=== PATIENT | female | born 1965 | race Caucasian/White ===

== ENCOUNTER 2021-08-08 11:30 | Emergency (ER) | payer MEDICAID ==
[~2021-08-08] VITALS: Ht 167.6 cm; Wt 52.7 kg
[2021-08-08] MEDS ORDERED: normal saline 1000ml 1,000 ML IV ONE (13:00)
[2021-08-08 13:15] LABS: BASOPHILS # (AUTO) 0.1 X10'3 (0-0.2); BASOPHILS % (AUTO) 0.8 % (0-1); EOSINOPHILS % (AUTO) 0.3 % (0-6); HEMATOCRIT 39.4 % (35.0-45.0); LYMPHOCYTES # (AUTO) 1.6 X10'3 (1.1-4.8); LYMPHOCYTES % (AUTO) 16.2 % (21-51); MEAN CORPUSCULAR VOLUME 93.7 FL (78-98); MEAN PLATELET VOLUME 7.9 FL (7.4-10.4); MONOCYTES # (AUTO) 0.6 X10'3 (0-0.9); MONOCYTES % (AUTO) 6.1 % (2-12); NEUTROPHILS # (AUTO) 7.8 X10'3 (1.8-7.7); NEUTROPHILS % (AUTO) 76.6 % (42-75); PLATELET COUNT 339 X10'3 (140-440); RED BLOOD COUNT 4.21 X10'6 (4.20-5.60); RED CELL DISTRIBUTION WIDTH 17.9 % (11.5-14.5); WHITE BLOOD COUNT 10.2 X10'3 (4.5-11.0)
[2021-08-08 13:23] LABS: ALANINE AMINOTRANSFERASE 18 U/L (12-78); ALBUMIN 3.8 G/DL (3.4-5.0); ALBUMIN/GLOBULIN RATIO 0.7 (1.1-1.5); ALKALINE PHOSPHATASE 125 IU/L (46-116); ANION GAP 20 (8-16); ASPARTATE AMINO TRANSFERASE 29 U/L (10-37); BILIRUBIN,TOTAL 0.9 MG/DL (0.1-1.0); BLOOD UREA NITROGEN 14 MG/DL (7-18); CALCIUM 9.7 MG/DL (8.5-10.1); CHLORIDE 102 MMOL/L (99-107); CREATININE 1.17 MG/DL (0.40-0.90); GLUCOSE 152 MG/DL (70-104); POTASSIUM 4.3 MMOL/L (3.5-5.1); SODIUM 140 MMOL/L (135-145); TOTAL CARBON DIOXIDE 18.2 MMOL/L (24-32); TOTAL PROTEIN 8.9 G/DL (6.4-8.2); eGFR 48 ML/MIN
[2021-08-08 13:27] LABS: D-DIMER 0.23 MG/L FEU (0-0.50)
--- NOTE | 2021-08-08 13:41 | NUR ---
CONTACT NUMBER FOR SISTERNELL,
[2021-08-08] MEDS ORDERED: iohexol 300mg/ml 100ml inj. ONE (14:56)
--- NOTE | 2021-08-08 15:37 | NUR ---
back from ct
[2021-08-08 16:10] LABS: CREATINE KINASE 19 U/L (26-192)
[2021-08-08] MEDS ORDERED: ondansetron/PF 4mg/2ml inj IV ONE (17:20)
[2021-08-08] MEDS ORDERED: ONDA4TAB6 PO (18:25)
[2021-08-08 20:30] VITALS: BP 113/78
== END 2021-08-08 18:57 | disposition home or self-care (01) ==
LOC: ER 11:31
DX: R10.13 Epigastric pain (principal); Z20.822 Contact with and (suspected) exposure to COVID-19; R11.0 Nausea; Z90.49 Acquired absence of other specified parts of digestive tract; Z88.2 Allergy status to sulfonamides; Z88.5 Allergy status to narcotic agent; Z79.899 Other long term (current) drug therapy
CPT/HCPCS: 36415; 71045; 74177; 80053; 82550; 83880; 84484; 85025; 85379; 87635; 93005; 96374; 99285; C9803; J2405; J7030; Q9967

== ENCOUNTER 2021-08-12 13:49 | Day surgery (SDC) | payer MEDICAID ==
[2021-08-12] VITALS (7 sets, daily range): BP systolic 104–148; BP diastolic 69–80
[~2021-08-12] VITALS: Ht 167.6 cm; Wt 52.7 kg
[~2021-08-12 13:49] MED LIST: ONDA4TAB6 PO
[2021-08-12] MEDS ORDERED: LIDOcaine Viscous 15ml cup ONE ×2 (14:17→15:07)
[2021-08-12] MEDS ORDERED: fentaNYL/PF 50MCG/1 ML 2ML syringe ONE (14:17)
[2021-08-12] MEDS ORDERED: MIDAZolam 1 MG/ML 5ML VIAL ONE (14:17)
[2021-08-12] MEDS ORDERED: ONDA4TAB6 PO (14:19)
[2021-08-12] MEDS ORDERED: OMEP-271 PO (14:20)
[2021-08-12] MEDS ORDERED: FAMO20TA8 PO (14:20)
[2021-08-12] MEDS ORDERED: PROG100C11 PO (14:21)
[2021-08-12] MEDS ORDERED: ESTR0.9T2 PO (14:21)
[2021-08-12] MEDS ORDERED: diphenhydrAMINE 50 mg/ml inj ONE (15:41)
== END 2021-08-12 17:30 | disposition home or self-care (01) ==
LOC: GI LAB 13:49
PROVIDERS: ATTEND Internal Medicine Gastroenterology
DX: R13.14 Dysphagia, pharyngoesophageal phase (principal); K22.2 Esophageal obstruction; K20.80 Other esophagitis without bleeding; K29.50 Unspecified chronic gastritis without bleeding; Z87.891 Personal history of nicotine dependence; Z72.89 Other problems related to lifestyle; Z88.2 Allergy status to sulfonamides; Z88.5 Allergy status to narcotic agent; Z79.899 Other long term (current) drug therapy
CPT/HCPCS: 43239; 43248; 99152; C1769; J1200; J2250; J3010; J7040; Z7512; 99153; A4620

== ENCOUNTER 2022-07-23 10:45 | Emergency (ER) | payer MEDICAID ==
[~2022-07-23] VITALS: Ht 165.1 cm; Wt 49.5 kg
[~2022-07-23 10:45] MED LIST changes: +ESTR0.9T2 PO; +FAMO20TA8 PO; +OMEP-271 PO; +PROG100C11 PO
[2022-07-23 10:48] VITALS: BP 134/95
[2022-07-23 12:15] LABS: BASOPHILS # (AUTO) 0.1 X10'3 (0-0.2); BASOPHILS % (AUTO) 0.8 % (0-1); EOSINOPHILS # (AUTO) 0.1 X10'3 (0-0.9); EOSINOPHILS % (AUTO) 0.9 % (0-6); LYMPHOCYTES # (AUTO) 3.2 X10'3 (1.1-4.8); LYMPHOCYTES % (AUTO) 28.6 % (21-51); MEAN CORPUSCULAR HEMOGLOBIN 29.8 PG (27.0-31.0); MEAN CORPUSCULAR HGB CONC 33.4 g/dL (33.0-36.5); MEAN PLATELET VOLUME 7.8 FL (7.4-10.4); MONOCYTES # (AUTO) 0.8 X10'3 (0-0.9); MONOCYTES % (AUTO) 6.7 % (2-12); PLATELET COUNT 471 X10'3 (140-440); RED BLOOD COUNT 3.71 X10'6 (4.20-5.60); WHITE BLOOD COUNT 11.1 X10'3 (4.5-11.0)
[2022-07-23 12:30] LABS: ALANINE AMINOTRANSFERASE 29 U/L (12-78); ALBUMIN 3.5 G/DL (3.4-5.0); ALBUMIN/GLOBULIN RATIO 0.8 (1.1-1.5); ALKALINE PHOSPHATASE 153 IU/L (46-116); ANION GAP 13 (8-16); ASPARTATE AMINO TRANSFERASE 24 U/L (10-37); BILIRUBIN,TOTAL 0.7 MG/DL (0.1-1.0); BLOOD UREA NITROGEN 16 MG/DL (7-18); BUN/CREATININE RATIO 10.8 (6.6-38.0); CALCIUM 9.6 MG/DL (8.5-10.1); CHLORIDE 97 MMOL/L (99-107); CREATININE 1.48 MG/DL (0.40-0.90); GLUCOSE 111 MG/DL (70-104); POTASSIUM 4.2 MMOL/L (3.5-5.1); SODIUM 137 MMOL/L (135-145); TOTAL CARBON DIOXIDE 27.3 MMOL/L (24-32); TOTAL PROTEIN 8.1 G/DL (6.4-8.2); eGFR 36 ML/MIN
[2022-07-23] MEDS ORDERED: iohexol 300mg/ml 100ml inj. ONE (12:38)
[2022-07-23 12:49] LABS: COLOR,URINE YELLOW (Yellow); GLUCOSE, URINE NEGATIVE (Neg); KETONES,URINE TRACE mg/dl (Neg); LEUKOCYTE ESTERASE ,URINE NEGATIVE (Neg); NITRITES, URINE NEGATIVE (Neg); OCCULT BLOOD,URINE NEGATIVE (Neg); PH,URINE 5.5 (4.8-8.0); PROTEIN,URINE TRACE mg/dl (Neg); UROBILINOGEN,URINE 0.2 E.U/dL (0.2-1.0)
[2022-07-23 13:20] LABS: CLARITY,URINE SLIGHTLY CLOUDY (Clear); UA COLLECTION TYPE VOIDED
[2022-07-23 13:23] LABS: SQUAMOUS EPITHELIAL CELL,UR MANY /LPF (FEW)
[2022-07-23 13:25] LABS: BACTERIA,URINE 2+ /HPF (Neg)
[2022-07-23 13:26] LABS: HYALINE CASTS 0-3 /LPF (NEGATIVE); RBC,URINE 0-2 /HPF (0-2)
[2022-07-23] MEDS ORDERED: FOSFOMYCIN TROMETHAMINE 3 GM PACKET PO ONE (15:10)
== END 2022-07-23 15:34 | disposition home or self-care (01) ==
LOC: ER 10:45
DX: N39.0 Urinary tract infection, site not specified (principal); R31.9 Hematuria, unspecified; Z88.2 Allergy status to sulfonamides; Z79.899 Other long term (current) drug therapy; Z88.5 Allergy status to narcotic agent
CPT/HCPCS: 36415; 74177; 80053; 81001; 85025; 87088; 99285; J3490; Q9967

== ENCOUNTER 2023-06-23 10:19 | Emergency (ER) | payer MEDICAID ==
[~2023-06-23] VITALS: Ht 165.1 cm; Wt 60.0 kg
[2023-06-23 13:58] VITALS: TEMP 97.8
[2023-06-23] MEDS ORDERED: ondansetron/PF 4mg/2ml inj IV ONE (14:55)
[2023-06-23] MEDS ORDERED: morphine 4 MG/ML inj SYRINge IV ONE (14:55)
[2023-06-23] MEDS ORDERED: LORazepam 2 mg/ml vial IV ONE (16:45)
--- NOTE | 2023-06-23 16:56 | NUR ---
Pts sister wei would like to be called upon transfer [phone]
--- NOTE | 2023-06-23 17:32 | NUR ---
Pt and sister notified of pts transport to [facility].
--- NOTE | 2023-06-23 17:59 | NUR ---
Nurse to nurse done with Balta Marques RN.
--- NOTE | 2023-06-23 18:01 | NUR ---
pt awaiting reach transfer
[2023-06-23 18:42] VITALS: BP 114/89; PULSE 84; RESP 18; O2SAT 99
== END 2023-06-23 18:45 | disposition short-term general hospital (02) ==
LOC: ER 10:19
DX: S02.611A Fracture of condylar process of right mandible, initial encounter for closed fracture (principal); Z90.49 Acquired absence of other specified parts of digestive tract; Z87.891 Personal history of nicotine dependence; Z88.2 Allergy status to sulfonamides; Z88.8 Allergy status to other drugs, medicaments and biological substances; Z79.899 Other long term (current) drug therapy; W01.0XXA Fall on same level from slipping, tripping and stumbling without subsequent striking against object, initial encounter; Y93.89 Activity, other specified; Y92.89 Other specified places as the place of occurrence of the external cause; Y99.8 Other external cause status
CPT/HCPCS: 70486; 96374; 96375; 99285; J2060; J2270; J2405

== ENCOUNTER 2023-07-23 14:17 | Inpatient (IN) | payer MEDICAID ==
[~2023-07-23] VITALS: Ht 167.6 cm; Wt 59.1 kg
[2023-07-23 15:28] LABS: BASOPHILS % (AUTO) 0.3 % (0-1); EOSINOPHILS % (AUTO) 0.1 % (0-6); HEMATOCRIT 40.4 % (35.0-45.0); HEMOGLOBIN 12.8 g/dl (12.0-16.0); LYMPHOCYTES # (AUTO) 1.8 X10'3 (1.1-4.8); LYMPHOCYTES % (AUTO) 17.5 % (21-51); MEAN CORPUSCULAR HEMOGLOBIN 30.5 PG (27.0-31.0); MEAN CORPUSCULAR HGB CONC 31.8 g/dL (33.0-36.5); MEAN CORPUSCULAR VOLUME 95.8 FL (78-98); MEAN PLATELET VOLUME 8.1 FL (7.4-10.4); MONOCYTES # (AUTO) 0.4 X10'3 (0-0.9); MONOCYTES % (AUTO) 4.2 % (2-12); NEUTROPHILS # (AUTO) 8.2 X10'3 (1.8-7.7); NEUTROPHILS % (AUTO) 77.9 % (42-75); PLATELET COUNT 306 X10'3 (140-440); RED BLOOD COUNT 4.22 X10'6 (4.20-5.60); RED CELL DISTRIBUTION WIDTH 17.4 % (11.5-14.5); WHITE BLOOD COUNT 10.5 X10'3 (4.5-11.0)
[2023-07-23 16:12] LABS: ALANINE AMINOTRANSFERASE 53 U/L (12-78); ALBUMIN 4.2 G/DL (3.4-5.0); ALBUMIN/GLOBULIN RATIO 0.8 (1.1-1.5); ALKALINE PHOSPHATASE 182 IU/L (46-116); ANION GAP 29 (8-16); ASPARTATE AMINO TRANSFERASE 99 U/L (10-37); BILIRUBIN,TOTAL 0.9 MG/DL (0.1-1.0); BLOOD UREA NITROGEN 13 MG/DL (7-18); BUN/CREATININE RATIO 10.2 (10.0-20.0); CALCIUM 10.3 MG/DL (8.5-10.1); CHLORIDE 90 MMOL/L (99-107); CREATININE 1.27 MG/DL (0.40-0.90); GLUCOSE 105 MG/DL (70-104); POTASSIUM 4.1 MMOL/L (3.5-5.1); SODIUM 130 MMOL/L (135-145); TOTAL PROTEIN 9.3 G/DL (6.4-8.2); eCRCL 44 ML/MIN; eGFR 43 ML/MIN
[2023-07-23 17:07] LABS: TOTAL CARBON DIOXIDE 11.3 MMOL/L (24-32)
[2023-07-23 18:33] LABS: ETHANOL < 10 MG/DL (<10)
[2023-07-23] MEDS ORDERED: normal saline 1000ML IV soln IV ONE (20:55)
[2023-07-23] MEDS ORDERED: normal saline 1000ML IV soln IVB ONE ×2 (22:55→23:05)
[2023-07-23] MEDS ORDERED: potassium Cl 40MEQ/1/2NS 520ml 520 ML IV PRN (23:55)
[2023-07-23] MEDS ORDERED: magnesium 2GM in 50ml NS 50 ML IV PRN (23:55)
[2023-07-23] MEDS ORDERED: magnesium hydroxide 30ml (MOM) UD suspension PO PRN (23:55)
[2023-07-23] MEDS ORDERED: mag hydrox/Alum hydrox/simeth 30ml oral suspension PO PRN (23:55)
[2023-07-23] MEDS ORDERED: magnesium 4gm in 100ml NS 100 ML IV PRN (23:55)
[2023-07-23] MEDS ORDERED: potassium Cl 20mEq in NS 1,000 ML IV SCH (23:55)
[2023-07-24 00:20] LABS: BILIRUBIN,URINE MODERATE (Neg); COLOR,URINE YELLOW (Yellow); GLUCOSE, URINE NEGATIVE (Neg); KETONES,URINE >=80 mg/dl (Neg); LEUKOCYTE ESTERASE ,URINE NEGATIVE (Neg); NITRITES, URINE NEGATIVE (Neg); OCCULT BLOOD,URINE TRACE-INTACT (Neg); PROTEIN,URINE 30 mg/dl (Neg); URINE HCG NEGATIVE (NEG); UROBILINOGEN,URINE 0.2 E.U/dL (0.2-1.0)
[2023-07-24 00:29] LABS: URINE AMPHETAMINE SCREEN NEGATIVE (Neg); URINE BARBITUATE SCREEN NEGATIVE (Neg); URINE BENZODIAZEPINES SCREEN NEGATIVE (Neg); URINE CANNABINOID SCREEN NEGATIVE (Neg); URINE COCAINE SCREEN NEGATIVE (Neg); URINE METHADONE SCREEN NEGATIVE (Neg); URINE OPIATE SCREEN NEGATIVE (Neg); URINE PHENCYCLIDINE SCREEN NEGATIVE (Neg)
[2023-07-24 00:31] LABS: CLARITY,URINE SLIGHTLY CLOUDY (Clear); RBC,URINE 0-2 /HPF (0-2); UA COLLECTION TYPE CLN CATCH MIDSTREAM; WBC,URINE 0-4 /HPF (0-4)
[2023-07-24 00:32] LABS: BACTERIA,URINE FEW /HPF (Neg); SQUAMOUS EPITHELIAL CELL,UR FEW /LPF (FEW); TRANSITIONAL EPI CELLS,URINE FEW /HPF
[2023-07-24] MEDS: dextrose 5%-normal saline 1,000 ML IV SCH ×3 (03:43→23:35)
--- NOTE | 2023-07-24 06:15 | NUR ---
Patient in room ORTHO 4013. I have received report from Jeni HOUGH and had the opportunity to ask questions and assume patient care.
[2023-07-24] MEDS: docusate sod 100mg capsule PO SCH ×2 (07:15→19:49)
[2023-07-24] MEDS: ondansetron/PF 4mg/2ml inj IV PRN ×2 (07:21→17:04)
[2023-07-24] MEDS: K and/or MAG REPLACEMENT MC SCH ×2 (07:57→19:48)
[2023-07-24 08:00] VITALS: BP 143/93; PULSE 87; RESP 16; TEMP 98.6; O2SAT 100
[2023-07-24 09:46] LABS: C DIFF ANTIGEN NEGATIVE (NEGATIVE); C DIFF SPECIMEN=DIARRHEA? ACCEPTABLE; C DIFFICILE TOXINS A&B NEGATIVE (Neg)
[2023-07-24 10:00] VITALS: BP 109/61; PULSE 88; RESP 18; TEMP 97.2; O2SAT 99
[2023-07-24 10:10] LABS: BASOPHILS % (AUTO) 0.2 % (0-1); EOSINOPHILS % (AUTO) 0.8 % (0-6); HEMATOCRIT 29.9 % (35.0-45.0); HEMOGLOBIN 9.7 g/dl (12.0-16.0); LYMPHOCYTES # (AUTO) 1.6 X10'3 (1.1-4.8); LYMPHOCYTES % (AUTO) 31.5 % (21-51); MEAN CORPUSCULAR HEMOGLOBIN 30.5 PG (27.0-31.0); MEAN CORPUSCULAR HGB CONC 32.5 g/dL (33.0-36.5); MEAN CORPUSCULAR VOLUME 93.9 FL (78-98); MONOCYTES # (AUTO) 0.3 X10'3 (0-0.9); MONOCYTES % (AUTO) 6.8 % (2-12); NEUTROPHILS # (AUTO) 3.1 X10'3 (1.8-7.7); NEUTROPHILS % (AUTO) 60.7 % (42-75); RED BLOOD COUNT 3.19 X10'6 (4.20-5.60); RED CELL DISTRIBUTION WIDTH 16.5 % (11.5-14.5); WHITE BLOOD COUNT 5.1 X10'3 (4.5-11.0)
[2023-07-24] MEDS ORDERED: NO HOME MEDS (10:25)
[2023-07-24 10:30] LABS: HEMOGLOBIN A1C 5.4 % (4.5-6.2)
[2023-07-24 10:36] LABS: PLATELET COUNT 151 X10'3 (140-440)
[2023-07-24 10:41] LABS: ALANINE AMINOTRANSFERASE 30 U/L (12-78); ALBUMIN 2.6 G/DL (3.4-5.0); ALBUMIN/GLOBULIN RATIO 0.8 (1.1-1.5); ALKALINE PHOSPHATASE 106 IU/L (46-116); ANION GAP 12 (8-16); ASPARTATE AMINO TRANSFERASE 33 U/L (10-37); BILIRUBIN,TOTAL 0.6 MG/DL (0.1-1.0); BLOOD UREA NITROGEN 8 MG/DL (7-18); BUN/CREATININE RATIO 8.1 (10.0-20.0); CALCIUM 8.2 MG/DL (8.5-10.1); CHLORIDE 105 MMOL/L (99-107); CHOL/HDL RATIO 2.2 (0.00-4.99); CHOLESTEROL 210 MG/DL (0-200); CREATININE 0.99 MG/DL (0.40-0.90); GLUCOSE 118 MG/DL (70-104); HDL CHOLESTEROL 96 MG/DL (35-60); LDL CHOLESTEROL 80 MG/DL (50-100); MAGNESIUM 1.6 MG/DL (1.5-2.4); POTASSIUM 4.5 MMOL/L (3.5-5.1); SODIUM 135 MMOL/L (135-145); THYROID STIMULATING HORMONE 2.53 ulU/ml (0.34-4.50); TOTAL CARBON DIOXIDE 18.4 MMOL/L (24-32); TOTAL PROTEIN 5.8 G/DL (6.4-8.2); TRIGLYCERIDES 109 MG/DL (20-135); eCRCL 56 ML/MIN; eGFR 57 ML/MIN
[2023-07-24] MEDS ORDERED: metoclopramide 5 mg/ml inj IV ONE (11:10)
[2023-07-24] MEDS: morphine 2 MG/ML inj. syringe IV PRN ×3 (11:54→22:14)
[2023-07-24] MEDS: pantoprazole 40MG/NS 100ML BAG 100 ML IV SCH ×2 (13:45→20:05)
--- NOTE | 2023-07-24 15:17 | NUR ---
Nutrition and TF consult: Pt admit for starvation ketosis due to wired jaw, c/o diarrhea, abd cramping. worsening weakness, and severe fatigue per EMR. Per H&P pt has lost 20 pounds in the last month due to a mandible fracture requiring jaw wired shut and likely will remain wired for another month and may benefit from nutrition support. Pt was NPO on admit however now advanced to full liquids per CUSTOMER SUPPORT ADVISOR this morning. Noted no pending nursing orders for feeding tube placement in EMR. Per T/C with RN, unsure of what the nutrition plan is since pt has been advanced to a full liquid diet though states pt complains of sore/painful jaw when trying to eat. Pt unable to meet estimated needs while on restrictive full liquid diet even with proper intake. Discussed with RN, recommendation of nutrition support given pt's inadequate intake for one month while at home. Paged physician regarding RD recommendations of nutrition support given malnourished status. Per RN malnutrition screen pt reports 14-23 pound wt loss and inadequate intake. Pt asleep at bedside during RD visit. Pt presents with visible wasting to temporal region. Due to reported wt loss and visible muscle wasting, pt meets a minimum of two malnutrition criteria at this time; MD notified. LBM on 07/23 per EMR. Will continue to monitor and make recommendations as appropriate. Recommendations: 1. Continue full liquid diet per CUSTOMER SUPPORT ADVISOR 2. Monitor need for ONS if nutrition support not initiated 3. If MD agreeable and within pt's POC, Initiate continuous TF of Jevity at 60ml/hr goal rate. Begin at 20ml/hr and advance as tolerated by 20ml Q8H to goal rate. Once at goal rate, to provide 1440ml of volume, 1728kcals, 80g of protein, and 1162ml of water. 4.IF TF additional water flushes of 90ml Q4H 5.IF TF prealbumin qMonday/ 6.IF TF daily scaled wts 7.Routine bowel care Addendum: 07/24/23 at [address] Amended: Links added.
[2023-07-24 18:00] VITALS: BP 96/66; PULSE 96; RESP 15; TEMP 97.6; O2SAT 99
[2023-07-24] MEDS: lactose-reduced food (Ensure High Protein) 237ml bottle PO SCH (18:00)
--- NOTE | 2023-07-24 18:14 | NUR ---
Problems reprioritized. Patient report given, questions answered & plan of care reviewed with Ruma HOUGH.
[2023-07-24] MEDS: diatr meglu/diatrizoate 30ml oral sol.-(3 dose) bottle PO SCH (20:06)
[2023-07-24 22:02] VITALS: BP 102/58; PULSE 100; RESP 14
[2023-07-25] MEDS: morphine 2 MG/ML inj. syringe IV PRN ×5 (04:38→21:09)
--- NOTE | 2023-07-25 06:28 | NUR ---
Report given to Saleem Vasquez, pt sleeping comfortably, no new concerns.
--- NOTE | 2023-07-25 06:43 | NUR ---
Patient in room ORTHO 4013. I have received report from KARENA HOUGH and had the opportunity to ask questions and assume patient care.
[2023-07-25 06:51] VITALS: BP 88/52; PULSE 87; RESP 16; TEMP 98.7; O2SAT 97
[2023-07-25] MEDS: diatr meglu/diatrizoate 30ml oral sol.-(3 dose) bottle PO SCH ×2 (07:11→10:08)
[2023-07-25] MEDS: heparin, porcine 5000 units/ml vial SQ SCH ×2 (07:12→21:00)
[2023-07-25] MEDS: docusate sod 100mg capsule PO SCH ×2 (07:13→19:53)
[2023-07-25] MEDS: pantoprazole 40MG/NS 100ML BAG 100 ML IV SCH ×2 (07:17→19:53)
[2023-07-25] MEDS: K and/or MAG REPLACEMENT MC SCH ×2 (08:00→20:00)
[2023-07-25] MEDS: lactose-reduced food (Ensure High Protein) 237ml bottle PO SCH ×3 (08:00→18:00)
[2023-07-25 08:32] LABS: BASOPHILS % (AUTO) 0.3 % (0-1); EOSINOPHILS % (AUTO) 1.2 % (0-6); HEMATOCRIT 29.1 % (35.0-45.0); HEMOGLOBIN 9.6 g/dl (12.0-16.0); LYMPHOCYTES # (AUTO) 1.2 X10'3 (1.1-4.8); LYMPHOCYTES % (AUTO) 30.8 % (21-51); MEAN CORPUSCULAR HEMOGLOBIN 30.6 PG (27.0-31.0); MEAN CORPUSCULAR HGB CONC 32.9 g/dL (33.0-36.5); MEAN CORPUSCULAR VOLUME 93.3 FL (78-98); MEAN PLATELET VOLUME 8.3 FL (7.4-10.4); MONOCYTES # (AUTO) 0.3 X10'3 (0-0.9); MONOCYTES % (AUTO) 6.7 % (2-12); NEUTROPHILS # (AUTO) 2.4 X10'3 (1.8-7.7); PLATELET COUNT 108 X10'3 (140-440); RED BLOOD COUNT 3.12 X10'6 (4.20-5.60); RED CELL DISTRIBUTION WIDTH 16.7 % (11.5-14.5); WHITE BLOOD COUNT 3.9 X10'3 (4.5-11.0)
[2023-07-25 08:51] LABS: ALANINE AMINOTRANSFERASE 32 U/L (12-78); ALBUMIN 2.3 G/DL (3.4-5.0); ALBUMIN/GLOBULIN RATIO 0.8 (1.1-1.5); ALKALINE PHOSPHATASE 98 IU/L (46-116); ANION GAP 4 (8-16); ASPARTATE AMINO TRANSFERASE 46 U/L (10-37); BILIRUBIN,TOTAL 0.6 MG/DL (0.1-1.0); BLOOD UREA NITROGEN 3 MG/DL (7-18); BUN/CREATININE RATIO 3.9 (10.0-20.0); CALCIUM 8.3 MG/DL (8.5-10.1); CHLORIDE 107 MMOL/L (99-107); CREATININE 0.76 MG/DL (0.40-0.90); GLUCOSE 134 MG/DL (70-104); MAGNESIUM 1.3 MG/DL (1.5-2.4); PHOSPHORUS 1.3 MG/DL (2.3-4.5); POTASSIUM 3.4 MMOL/L (3.5-5.1); SODIUM 135 MMOL/L (135-145); TOTAL CARBON DIOXIDE 24.4 MMOL/L (24-32); TOTAL PROTEIN 5.3 G/DL (6.4-8.2); eCRCL 73 ML/MIN; eGFR 78 ML/MIN
[2023-07-25] MEDS: dextrose 5%-normal saline 1,000 ML IV SCH ×2 (09:05→13:20)
[2023-07-25 10:00] VITALS: BP 104/68; PULSE 87; RESP 18; TEMP 98.6; O2SAT 99
[2023-07-25 10:34] VITALS: RESP 16; O2SAT 97
--- NOTE | 2023-07-25 13:13 | NUR ---
Message: FRANCE LOUIS, [facility], [id number]. RE: [id number]. PT. MG-1.3, K+-3.4, AND PHOS-1.3, CAN I ADD NEUTRA PHOSPHATE AND EFFER K TO EMAR? ONLT MG IV AND K+ IV ON EMAR. THANKS.
[2023-07-25] MEDS: POTASSIUM BICARB 20meq eff tab 20 MEQ TABLET.EFF PO PRN ×2 (14:32→19:53)
[2023-07-25] MEDS: Neutra Phos packet PO SCH ×2 (14:32→20:14)
[2023-07-25 18:00] VITALS: BP 119/72; PULSE 79; PULSE 98; RESP 16; TEMP 97.8; O2SAT 79; O2SAT 98
--- NOTE | 2023-07-25 18:34 | NUR ---
Calorie count consult: re "need calorie for the next 2 days". Pt seen by RD yesterday. RD recommends nutrition support due to prolonged full liquid diet and malnourished status; see prior RD note for TF recs. RD had a T/C discussion with RN regarding recommendations. Pt continues on a full liquid diet ~0-25% x 5 meals not meeting estimated needs. RN to discuss recommendation with MD. Per discussion with RN, RD agreeable to Ensure Enlive at a minimum if MD agreeable though anticipate pt will not drink since she is not drinking her full liquids and c/o jaw pain. Addendum: 07/25/23 at [address] Amended: Links added.
--- NOTE | 2023-07-25 18:34 | NUR ---
Problems reprioritized. Patient report given TO PRUDENCE RN, questions answered & plan of care reviewed with .
--- NOTE | 2023-07-25 18:42 | NUR ---
Patient in room ORTHO 4013. I have received report from MISSY HOUGH and had the opportunity to ask questions and assume patient care.
[2023-07-25 20:00] VITALS: RESP 14; RESP 16; O2SAT 97; O2SAT 98
[2023-07-25 22:00] VITALS: BP 103/62; PULSE 88; RESP 20; TEMP 98; O2SAT 99
[2023-07-26] MEDS: morphine 2 MG/ML inj. syringe IV PRN ×4 (01:27→20:31)
[2023-07-26] MEDS: dextrose 5%-normal saline 1,000 ML IV SCH ×2 (04:50→15:45)
--- NOTE | 2023-07-26 06:18 | NUR ---
Patient in room ORTHO 4013. I have received report from SORAYA HOUGH and had the opportunity to ask questions and assume patient care.
--- NOTE | 2023-07-26 06:18 | NUR ---
Problems reprioritized. Patient report given, questions answered & plan of care reviewed with MISSY HOUGH.
[2023-07-26 06:37] VITALS: BP 107/56; PULSE 80; RESP 16; TEMP 98.1; O2SAT 98
[2023-07-26 06:56] LABS: BASOPHILS % (AUTO) 0.6 % (0-1); HEMATOCRIT 25.9 % (35.0-45.0); HEMOGLOBIN 8.6 g/dl (12.0-16.0); LYMPHOCYTES # (AUTO) 0.9 X10'3 (1.1-4.8); LYMPHOCYTES % (AUTO) 42.3 % (21-51); MEAN CORPUSCULAR HEMOGLOBIN 30.1 PG (27.0-31.0); MEAN CORPUSCULAR HGB CONC 33.1 g/dL (33.0-36.5); MEAN PLATELET VOLUME 7.7 FL (7.4-10.4); MONOCYTES # (AUTO) 0.1 X10'3 (0-0.9); MONOCYTES % (AUTO) 6.8 % (2-12); NEUTROPHILS % (AUTO) 49.3 % (42-75); PLATELET COUNT 91 X10'3 (140-440); RED BLOOD COUNT 2.85 X10'6 (4.20-5.60); RED CELL DISTRIBUTION WIDTH 16.4 % (11.5-14.5)
[2023-07-26 07:13] LABS: ALANINE AMINOTRANSFERASE 59 U/L (12-78); ALBUMIN 2.1 G/DL (3.4-5.0); ALBUMIN/GLOBULIN RATIO 0.8 (1.1-1.5); ALKALINE PHOSPHATASE 107 IU/L (46-116); ANION GAP 4 (8-16); ASPARTATE AMINO TRANSFERASE 176 U/L (10-37); BILIRUBIN,TOTAL 0.6 MG/DL (0.1-1.0); BLOOD UREA NITROGEN 1 MG/DL (7-18); BUN/CREATININE RATIO 1.4 (10.0-20.0); CALCIUM 7.8 MG/DL (8.5-10.1); CHLORIDE 105 MMOL/L (99-107); GLUCOSE 128 MG/DL (70-104); MAGNESIUM 2.4 MG/DL (1.5-2.4); PHOSPHORUS 1.7 MG/DL (2.3-4.5); POTASSIUM 3.4 MMOL/L (3.5-5.1); SODIUM 134 MMOL/L (135-145); TOTAL CARBON DIOXIDE 24.7 MMOL/L (24-32); TOTAL PROTEIN 4.9 G/DL (6.4-8.2); eCRCL 80 ML/MIN; eGFR 85 ML/MIN
[2023-07-26 07:45] LABS: ANISOCYTOSIS 1+; PLATELET ESTIMATE DECREASED; TOTAL CELLS COUNTED 100
[2023-07-26] MEDS: K and/or MAG REPLACEMENT MC SCH ×2 (08:00→20:00)
[2023-07-26] MEDS: heparin, porcine 5000 units/ml vial SQ SCH ×2 (08:00→20:30)
[2023-07-26] MEDS: docusate sod 100mg capsule PO SCH (08:00)
[2023-07-26] MEDS: Neutra Phos packet PO SCH ×3 (08:52→20:29)
[2023-07-26] MEDS: POTASSIUM BICARB 20meq eff tab 20 MEQ TABLET.EFF PO PRN ×3 (08:52→18:00)
[2023-07-26] MEDS: lactose-reduced food (Ensure High Protein) 237ml bottle PO SCH ×3 (08:53→18:02)
[2023-07-26] MEDS: pantoprazole 40MG/NS 100ML BAG 100 ML IV SCH ×2 (08:53→20:30)
[2023-07-26 10:00] VITALS: BP 112/68; PULSE 86; RESP 18; TEMP 97.6; O2SAT 98
[2023-07-26] MEDS ORDERED: loperamide 2mg capsule PO ONE (10:20)
[2023-07-26] MEDS: ondansetron/PF 4mg/2ml inj IV PRN (10:26)
--- NOTE | 2023-07-26 12:12 | NUR ---
Calorie Count: 07/26- Pt 0-25% full liquids and 0% vs refusing Ensures per EMR. MAGGIE paged pt would benefit from feeding tube for nutrition repletion; calorie count not warranted since pt intake clearly not meeting needs. Recommendations: 1. Continue full liquid diet per TISSUE PACKER/MD 2. Ensure High Protein TIDWM per MD; cancel given pt 0% of ONS. If pt becomes agreeable to ONS change to Ensure Enlive TIDWM 3. G-tube for nutrition repletion if MD agreeable and within POC. IF TF; Jevity at 60ml/hr goal rate. Begin at 20ml/hr and advance as tolerated by 20ml Q8H to goal rate. Once at goal rate, to provide 1440ml of volume, 1728kcals, 80g of protein, and 1162ml of water. 4. IF TF; additional water flushes 100ml Q4H 5. IF TF; prealbumin q Thursday/ 6. IF TF; daily scaled wts 7. Routine bowel care Addendum: 07/26/23 at [address] Amended: Links added.
[2023-07-26 13:40] LABS: HIV ANTIBODY 1&2 RAPID NON-REACTIVE (Neg)
[2023-07-26 13:58] VITALS: RESP 16; O2SAT 98
[2023-07-26 14:42] LABS: OCCULT BLOOD STOOL NEGATIVE (Neg)
[2023-07-26 18:00] VITALS: BP 114/74; PULSE 76; RESP 18; TEMP 97.6; O2SAT 97
--- NOTE | 2023-07-26 18:26 | NUR ---
Problems reprioritized. Patient report given TO PRUDENCE RN, questions answered & plan of care reviewed with .
--- NOTE | 2023-07-26 19:04 | NUR ---
Patient in room ORTHO 4013. I have received report from MISSY HOUGH and had the opportunity to ask questions and assume patient care.
[2023-07-26] MEDS: Melatonin 3mg tablet PO SCH (21:10)
[2023-07-26 22:00] VITALS: BP 104/64; PULSE 81; RESP 18; TEMP 97.8; O2SAT 97
[2023-07-27] MEDS: dextrose 5%-normal saline 1,000 ML IV SCH ×3 (01:03→21:20)
[2023-07-27] MEDS: morphine 2 MG/ML inj. syringe IV PRN ×4 (01:03→19:57)
[2023-07-27 06:00] VITALS: BP 102/69; PULSE 77; RESP 16; TEMP 97.6; O2SAT 97
[2023-07-27 06:08] LABS: HEMATOCRIT 27.4 % (35.0-45.0); HEMOGLOBIN 9.2 g/dl (12.0-16.0); MEAN CORPUSCULAR HEMOGLOBIN 30.7 PG (27.0-31.0); MEAN CORPUSCULAR HGB CONC 33.6 g/dL (33.0-36.5); MEAN CORPUSCULAR VOLUME 91.3 FL (78-98); MEAN PLATELET VOLUME 8.5 FL (7.4-10.4); PLATELET COUNT 116 X10'3 (140-440); RED CELL DISTRIBUTION WIDTH 16.9 % (11.5-14.5)
[2023-07-27 06:27] LABS: ALANINE AMINOTRANSFERASE 69 U/L (12-78); ALBUMIN 2.3 G/DL (3.4-5.0); ALBUMIN/GLOBULIN RATIO 0.7 (1.1-1.5); ALKALINE PHOSPHATASE 115 IU/L (46-116); ANION GAP 4 (8-16); ASPARTATE AMINO TRANSFERASE 152 U/L (10-37); BILIRUBIN,TOTAL 0.5 MG/DL (0.1-1.0); CALCIUM 8.2 MG/DL (8.5-10.1); CHLORIDE 103 MMOL/L (99-107); CREATININE 0.76 MG/DL (0.40-0.90); GLUCOSE 118 MG/DL (70-104); MAGNESIUM 1.6 MG/DL (1.5-2.4); PHOSPHORUS 2.6 MG/DL (2.3-4.5); POTASSIUM 3.6 MMOL/L (3.5-5.1); SODIUM 135 MMOL/L (135-145); TOTAL CARBON DIOXIDE 28.4 MMOL/L (24-32); TOTAL PROTEIN 5.4 G/DL (6.4-8.2); eCRCL 73 ML/MIN; eGFR 78 ML/MIN
--- NOTE | 2023-07-27 06:28 | NUR ---
Problems reprioritized. Patient report given, questions answered & plan of care reviewed with CHARIS HOUGH.
[2023-07-27 06:42] LABS: BLOOD UREA NITROGEN 0 MG/DL (7-18)
--- NOTE | 2023-07-27 06:45 | NUR ---
Patient in room ORTHO 4013. I have received report from joanne rayo and had the opportunity to ask questions and assume patient care.
[2023-07-27 07:00] VITALS: RESP 16; O2SAT 97
[2023-07-27 07:22] LABS: ANISOCYTOSIS 1+; LARGE PLATELETS FEW; PLATELET ESTIMATE DECREASED; TOTAL CELLS COUNTED 100
[2023-07-27 07:23] LABS: POIKILOCYTOSIS FEW; TEAR DROP CELLS FEW
[2023-07-27] MEDS: heparin, porcine 5000 units/ml vial SQ SCH ×2 (08:00→19:44)
[2023-07-27] MEDS: lactose-reduced food (Ensure High Protein) 237ml bottle PO SCH ×3 (08:00→18:03)
[2023-07-27] MEDS: Neutra Phos packet PO SCH ×3 (08:00→21:00)
[2023-07-27] MEDS: K and/or MAG REPLACEMENT MC SCH ×2 (08:00→20:00)
[2023-07-27] MEDS: pantoprazole 40mg Tablet.DR PO SCH ×2 (08:42→19:57)
[2023-07-27 10:00] VITALS: BP 101/52; PULSE 71; RESP 15; TEMP 98.3; O2SAT 98
--- NOTE | 2023-07-27 12:45 | NUR ---
Patient in room ORTHO 4013. I have received report from amber rayo and had the opportunity to ask questions and assume patient care.
--- NOTE | 2023-07-27 12:58 | NUR ---
Problems reprioritized. Patient report given, questions answered & plan of care reviewed with amber rayo. Addendum: 07/27/23 at 1258 by Jorge Luis Damon RN wrong time at 0830
--- NOTE | 2023-07-27 17:26 | NUR ---
Page Accepted Message: [id number] Martinez Can patient have her full liquid diet due to her not having her procedure today, possibly tomorrow. Do you want her NPO after midnight, unable to get ahold of resident. Jorge Luis/Efrain [phone]
[2023-07-27 18:00] VITALS: BP 115/76; PULSE 71; RESP 16; TEMP 98.2; O2SAT 97
--- NOTE | 2023-07-27 18:38 | NUR ---
Problems reprioritized. Patient report given, questions answered & plan of care reviewed with josé miguel rayo.
[2023-07-27] MEDS: Melatonin 3mg tablet PO SCH (21:20)
[2023-07-27] MEDS: ondansetron/PF 4mg/2ml inj IV PRN (21:28)
[2023-07-27 22:00] VITALS: BP 105/60; PULSE 79; RESP 18; TEMP 96.9; O2SAT 97
[2023-07-28] MEDS: morphine 2 MG/ML inj. syringe IV PRN ×2 (00:09→04:32)
[2023-07-28 04:31] VITALS: BP 109/64; PULSE 74; RESP 16; O2SAT 98
[2023-07-28 06:00] VITALS: BP 96/60; PULSE 74; RESP 16; TEMP 97; O2SAT 96
[2023-07-28 06:14] LABS: BASOPHILS % (AUTO) 0.4 % (0-1); EOSINOPHILS % (AUTO) 1.3 % (0-6); HEMOGLOBIN 8.6 g/dl (12.0-16.0); LYMPHOCYTES # (AUTO) 1.2 X10'3 (1.1-4.8); LYMPHOCYTES % (AUTO) 46.8 % (21-51); MEAN CORPUSCULAR HEMOGLOBIN 30.4 PG (27.0-31.0); MEAN CORPUSCULAR HGB CONC 33.1 g/dL (33.0-36.5); MEAN CORPUSCULAR VOLUME 91.9 FL (78-98); MEAN PLATELET VOLUME 8.2 FL (7.4-10.4); MONOCYTES # (AUTO) 0.4 X10'3 (0-0.9); MONOCYTES % (AUTO) 14.1 % (2-12); NEUTROPHILS # (AUTO) 0.9 X10'3 (1.8-7.7); NEUTROPHILS % (AUTO) 37.4 % (42-75); PLATELET COUNT 121 X10'3 (140-440); RED BLOOD COUNT 2.83 X10'6 (4.20-5.60); RED CELL DISTRIBUTION WIDTH 16.6 % (11.5-14.5); WHITE BLOOD COUNT 2.5 X10'3 (4.5-11.0)
--- NOTE | 2023-07-28 06:30 | NUR ---
Problems reprioritized. Patient report given, questions answered & plan of care reviewed with FRANCE Kang.
[2023-07-28 06:37] LABS: ALANINE AMINOTRANSFERASE 66 U/L (12-78); ALBUMIN 2.2 G/DL (3.4-5.0); ALBUMIN/GLOBULIN RATIO 0.7 (1.1-1.5); ALKALINE PHOSPHATASE 106 IU/L (46-116); ANION GAP 5 (8-16); ASPARTATE AMINO TRANSFERASE 102 U/L (10-37); BILIRUBIN,TOTAL 0.3 MG/DL (0.1-1.0); CALCIUM 8.3 MG/DL (8.5-10.1); CHLORIDE 102 MMOL/L (99-107); CREATININE 0.77 MG/DL (0.40-0.90); GLUCOSE 120 MG/DL (70-104); PHOSPHORUS 4.1 MG/DL (2.3-4.5); POTASSIUM 3.6 MMOL/L (3.5-5.1); SODIUM 136 MMOL/L (135-145); TOTAL CARBON DIOXIDE 29.2 MMOL/L (24-32); TOTAL PROTEIN 5.2 G/DL (6.4-8.2); eCRCL 72 ML/MIN; eGFR 76 ML/MIN
[2023-07-28 06:58] LABS: BLOOD UREA NITROGEN 0 MG/DL (7-18)
[2023-07-28] MEDS: dextrose 5%-normal saline 1,000 ML IV SCH (07:05)
[2023-07-28 07:14] LABS: ANISOCYTOSIS 1+; LARGE PLATELETS FEW; PLATELET ESTIMATE DECREASED; TOTAL CELLS COUNTED 100
[2023-07-28] MEDS: Neutra Phos packet PO SCH (08:00)
[2023-07-28] MEDS: heparin, porcine 5000 units/ml vial SQ SCH (08:00)
[2023-07-28] MEDS: pantoprazole 40mg Tablet.DR PO SCH (08:35)
[2023-07-28] MEDS: lactose-reduced food (Ensure High Protein) 237ml bottle PO SCH (08:47)
[2023-07-28 10:00] VITALS: BP 105/57; PULSE 80; RESP 18; TEMP 97.6; O2SAT 96
[2023-07-28 10:57] LABS: ALBUMIN, UR 30.9 % (.); ALPHA-1-GLOBULIN,UR 1.3 % (.); GAMMA GLOBULIN,UR 20.8 % (.); PROTEIN,TOTAL,URINE 29.6 mg/dL (Not Estab.)
--- NOTE | 2023-07-28 11:14 | NUR ---
pt son called and wanted to know what was going on with pt. pt was not on SBAR i asked if information can be given out to the son. pt stated to have him call her and she will go over everything with him. i let the son know this and that i can not give out any information at this time.
[2023-07-28] MEDS ORDERED: PANT40TA54 PO (11:46)
[2023-07-28] MEDS ORDERED: ONDA4TAB12 PO (11:46)
--- NOTE | 2023-07-28 12:32 | NUR ---
F/u 07/28: Pt did not have G-tube placed and is being discharged today w/ plan for possible G-tube outpatient per RN. SERRANO d/w RN pt admitting DX and how supplemental EN will be essential for nutrition repletion given continued poor 0-25% intake full liquids. No nutrition interventions in view of discharge. Recommendations: 1. Continue full liquid diet per GEM EXPERT/MD 2. Ensure High Protein TIDWM per MD; cancel given pt 0% of ONS. If pt becomes agreeable to ONS change to Ensure Enlive TIDWM 3. G-tube for nutrition repletion. IF TF; Jevity at 60ml/hr goal rate. Begin at 20ml/hr and advance as tolerated by 20ml Q8H to goal rate. Once at goal rate, to provide 1440ml of volume, 1728kcals, 80g of protein, and 1162ml of water. 4. IF TF; additional water flushes 100ml Q4H 5. IF TF; prealbumin q Thursday/ 6. IF TF; daily scaled wts 7. Routine bowel care Addendum: 07/28/23 at [address] Amended: Links added.
[2023-07-28] MEDS ORDERED: TRAM50TA2 PO (12:34)
--- NOTE | 2023-07-28 13:05 | NUR ---
pt is stable for dc, iv dc cannula is intact, all dc info gone over and signed, per resident md would be calling over pain medication for pt, pt had no wound pictures or medication in the pharmacy, pt was wheeled down to the lobby by the aide and left in a private vehicle with niece. follow up info provided in the dc packet.
== END 2023-07-28 12:46 | disposition home or self-care (01) | DRG 815 ==
LOC: ER 14:18 → ED HOLD 23:57 → EDBEDREQ 07-24 04:01 → ORTHO 4S 07-24 07:05
PROVIDERS: ADMIT Internal Medicine; ATTEND Family Medicine
DX: T73.0XXA Starvation, initial encounter (principal); E43 Unspecified severe protein-calorie malnutrition; D61.818 Other pancytopenia; E88.89 Other specified metabolic disorders; G62.9 Polyneuropathy, unspecified; E87.1 Hypo-osmolality and hyponatremia; E83.39 Other disorders of phosphorus metabolism; E83.42 Hypomagnesemia; K29.70 Gastritis, unspecified, without bleeding; E87.6 Hypokalemia; X58.XXXA Exposure to other specified factors, initial encounter; Z79.899 Other long term (current) drug therapy; Z88.5 Allergy status to narcotic agent; Z88.2 Allergy status to sulfonamides; Z88.8 Allergy status to other drugs, medicaments and biological substances; Z90.49 Acquired absence of other specified parts of digestive tract; Z68.21 Body mass index [BMI] 21.0-21.9, adult
CPT/HCPCS: 36415; 71045; 74176; 80053; 80061; 80305; 80320; 81001; 81025; 82272; 82607; 83036; 83605; 83690; 83735; 84100; 84145; 84156; 84166; 84443; 85007; 85025; 86703; 87040; 87045; 87046; 87081; 87324; 87449; 89055; 92508; 92616; 99285; C9113; G0378; J1644; J2270; J2405; J2765; J3475; J3480; J7030; J7040; J7042; Q9963

== ENCOUNTER 2023-08-17 16:02 | Emergency (ER) | payer MEDICAID ==
[~2023-08-17] VITALS: Ht 165.1 cm; Wt 46.3 kg
[~2023-08-17 16:02] MED LIST changes: -ESTR0.9T2 PO; -FAMO20TA8 PO; +NO HOME MEDS; -OMEP-271 PO; +ONDA4TAB12 PO; -ONDA4TAB6 PO; +PANT40TA54 PO; -PROG100C11 PO; +TRAM50TA2 PO
[2023-08-17 16:19] VITALS: TEMP 98.5
--- NOTE | 2023-08-17 17:01 | NUR ---
Pt had fall on 06/25/23, went to [facility], surgery then sent home. Jaw was wired shut, became nutritional depleted, hospitalized 5 days here at [facility].Pt c/o change in memory, cognition, skin flaking, R side flank pain.
[2023-08-17] MEDS ORDERED: ondansetron/PF 4mg/2ml inj IV ONE (17:30)
[2023-08-17] MEDS ORDERED: mag hydrox/Alum hydrox/simeth 30ml oral suspension PO ONE (17:30)
[2023-08-17] MEDS ORDERED: HYDROmorphone inj. 0.5 MG/0.5 ML DISP.SYRIN IV ONE (17:30)
[2023-08-17] MEDS ORDERED: normal saline 1000ML IV soln IVB ONE ×2 (17:30→20:40)
[2023-08-17] MEDS ORDERED: LORazepam 2 mg/ml vial IV ONE (17:30)
[2023-08-17] MEDS ORDERED: pantoprazole 40 MG vial IV ONE (17:30)
[2023-08-17] MEDS ORDERED: acetaminophen 325mg tablet PO ONE (17:30)
[2023-08-17] MEDS ORDERED: LIDOcaine Viscous 15ml cup MM ONE (17:30)
[2023-08-17 17:41] LABS: BILIRUBIN,URINE NEGATIVE (Neg); CLARITY,URINE SLIGHTLY CLOUDY (Clear); COLOR,URINE YELLOW (Yellow); GLUCOSE, URINE NEGATIVE (Neg); KETONES,URINE NEGATIVE (Neg); LEUKOCYTE ESTERASE ,URINE NEGATIVE (Neg); NITRITES, URINE NEGATIVE (Neg); OCCULT BLOOD,URINE NEGATIVE (Neg); PROTEIN,URINE NEGATIVE (Neg); UROBILINOGEN,URINE 0.2 E.U/dL (0.2-1.0)
[2023-08-17 17:42] LABS: URINE HCG NEGATIVE (NEG)
[2023-08-17] MEDS ORDERED: pantoprazole 40MG/NS 100ML BAG 100 ML IV ONE (17:50)
[2023-08-17 17:54] LABS: UA COLLECTION TYPE CLN CATCH MIDSTREAM
[2023-08-17 17:56] LABS: BACTERIA,URINE FEW /HPF (Neg); RBC,URINE NONE SEEN /HPF (0-2); SQUAMOUS EPITHELIAL CELL,UR MODERATE /LPF (FEW); WBC,URINE 0-4 /HPF (0-4)
[2023-08-17 18:24] VITALS: BP 109/80; PULSE 81; RESP 17; O2SAT 99
--- NOTE | 2023-08-17 18:24 | NUR ---
Pt gives permission for sister Anahi Mcleod to have access to pt's condition and treatment.
[2023-08-17 18:54] LABS: HEMATOCRIT 32.4 % (35.0-45.0); LYMPHOCYTES # (AUTO) 3.1 X10'3 (1.1-4.8); MEAN CORPUSCULAR HEMOGLOBIN 30.7 PG (27.0-31.0); MEAN PLATELET VOLUME 7.5 FL (7.4-10.4); NEUTROPHILS # (AUTO) 2.1 X10'3 (1.8-7.7); WHITE BLOOD COUNT 5.6 X10'3 (4.5-11.0)
[2023-08-17 18:55] LABS: BASOPHILS % (AUTO) 0.5 % (0-1); EOSINOPHILS # (AUTO) 0.1 X10'3 (0-0.9); EOSINOPHILS % (AUTO) 0.9 % (0-6); LYMPHOCYTES % (AUTO) 55.6 % (21-51); MEAN CORPUSCULAR VOLUME 90.5 FL (78-98); MONOCYTES # (AUTO) 0.3 X10'3 (0-0.9); MONOCYTES % (AUTO) 4.6 % (2-12); NEUTROPHILS % (AUTO) 38.4 % (42-75); PLATELET COUNT 337 X10'3 (140-440); RED BLOOD COUNT 3.58 X10'6 (4.20-5.60); RED CELL DISTRIBUTION WIDTH 16.9 % (11.5-14.5)
[2023-08-17 19:00] LABS: APTT 25 SECONDS (22-32); PROTHROMBIN TIME 10.4 SECONDS (9.0-12.0)
[2023-08-17 19:12] LABS: HCG SERUM QL NEGATIVE
[2023-08-17 19:15] LABS: ALANINE AMINOTRANSFERASE 34 U/L (12-78); ALBUMIN 3.3 G/DL (3.4-5.0); ALBUMIN/GLOBULIN RATIO 0.8 (1.1-1.5); ALKALINE PHOSPHATASE 144 IU/L (46-116); ANION GAP 13 (8-16); ASPARTATE AMINO TRANSFERASE 52 U/L (10-37); BILIRUBIN,TOTAL 0.3 MG/DL (0.1-1.0); BLOOD UREA NITROGEN 9 MG/DL (7-18); BUN/CREATININE RATIO 10.1 (10.0-20.0); CHLORIDE 104 MMOL/L (99-107); CREATINE KINASE 31 U/L (26-192); CREATININE 0.89 MG/DL (0.40-0.90); GLUCOSE 94 MG/DL (70-104); LIPASE 46 U/L (16-77); POTASSIUM 3.5 MMOL/L (3.5-5.1); SODIUM 142 MMOL/L (135-145); TOTAL CARBON DIOXIDE 24.8 MMOL/L (24-32); TOTAL PROTEIN 7.2 G/DL (6.4-8.2); eCRCL 49 ML/MIN; eGFR 65 ML/MIN
[2023-08-17 19:20] LABS: CREATINE KINASE MB < 0.5 ng/ml (0.3-3.6)
[2023-08-17] MEDS ORDERED: IODIXANOL 320 MG/ML INFUS..BTL 100ML IV ONE (19:20)
[2023-08-17 19:25] LABS: CALCIUM 8.5 MG/DL (8.5-10.1)
[2023-08-17 19:36] LABS: ACETONE NEGATIVE (NEGATIVE)
[2023-08-17 19:37] LABS: OSMOLALITY 374 MOSM/K (280-300)
--- NOTE | 2023-08-17 19:55 | NUR ---
THIS RN AGREES W LVNS ASSESSMENT.
[2023-08-17 20:14] LABS: ANISOCYTOSIS 1+; PLATELET ESTIMATE NORMAL; TOTAL CELLS COUNTED 100
[2023-08-17 20:19] LABS: ELLIPTOCYTES FEW
[2023-08-17 20:20] LABS: TEAR DROP CELLS FEW
[2023-08-17] MEDS ORDERED: MEGE40TA5 PO (21:53)
--- NOTE | 2023-08-17 22:30 | NUR ---
sister Anahi called to pickup sister. pt being discharged
[2023-08-17] MEDS ORDERED: CHLO118M PO (22:33)
--- NOTE | 2023-08-17 22:55 | NUR ---
vo from dr. Lopez for 1000nacl bolas . pt refused , pt requesting to leave
--- NOTE | 2023-08-17 23:05 | NUR ---
iv dc'd pt being discharged dressing applied
--- NOTE | 2023-08-18 17:19 | NUR ---
REC'D CALL FROM LAB - AEROBIC CULTURE WAS POSITIVE FOR GRAM VARIABLE RODS. SAMPLE WAS DRAWN FROM RIGHT ARM ON 08/17 @1827 - DETECTED AT 2152 HRS
== END 2023-08-17 23:06 | disposition home or self-care (01) ==
LOC: ER 16:03 → EEVIPCON 16:03 → ER 23:06
DX: R63.0 Anorexia (principal); Z79.899 Other long term (current) drug therapy; Z88.2 Allergy status to sulfonamides; Z88.5 Allergy status to narcotic agent
CPT/HCPCS: 36415; 71045; 74177; 80053; 81001; 81025; 82009; 82550; 82553; 83605; 83690; 83930; 84484; 84703; 85007; 85025; 85610; 85730; 87040; 93005; 96361; 96365; 96366; 96375; 99285; C9113; J1170; J2060; J2405; J3490; J7030; Q9967

== ENCOUNTER 2025-01-10 08:31 | Day surgery (SDC) | payer MEDICAID ==
[2025-01-09 14:27] LABS: BASOPHILS % (AUTO) 0.5 % (0-1); EOSINOPHILS # (AUTO) 0.1 X10'3 (0-0.9); EOSINOPHILS % (AUTO) 0.9 % (0-6); LYMPHOCYTES # (AUTO) 2.2 X10'3 (1.1-4.8); LYMPHOCYTES % (AUTO) 30.2 % (21-51); MEAN CORPUSCULAR HEMOGLOBIN 31.2 PG (27.0-31.0); MEAN CORPUSCULAR VOLUME 94.7 FL (78-98); MEAN PLATELET VOLUME 7.3 FL (7.4-10.4); MONOCYTES # (AUTO) 0.4 X10'3 (0-0.9); MONOCYTES % (AUTO) 5.1 % (2-12); NEUTROPHILS # (AUTO) 4.5 X10'3 (1.8-7.7); NEUTROPHILS % (AUTO) 63.3 % (42-75); PRE OP HEMATOCRIT 35.9 % (35.0-45.0); PRE OP HEMOGLOBIN 11.8 g/dL (12.0-16.0); PRE OP PLATELET COUNT 338 X10'3 (140-440); PRE OP WHITE BLOOD COUNT 7.2 10'3 (4.8-10.8); RED BLOOD COUNT 3.79 X10'6 (4.20-5.60); RED CELL DISTRIBUTION WIDTH 16.4 % (11.5-14.5)
[2025-01-09 14:45] LABS: ALBUMIN 3.7 G/DL (3.4-5.0); ALBUMIN/GLOBULIN RATIO 0.9 (1.1-1.5); ALKALINE PHOSPHATASE 121 IU/L (46-116); BLOOD UREA NITROGEN 17 MG/DL (7-18); BUN/CREATININE RATIO 15.6 (10.0-20.0); CALCIUM 8.6 MG/DL (8.5-10.1); CHLORIDE 102 MMOL/L (99-107); CREATININE 1.09 MG/DL (0.40-0.90); PRE OP ALT 41 U/L (30-65); PRE OP ANION GAP 11 (8-16); PRE OP AST 49 U/L (10-37); PRE OP BILIRUB, TOTAL 0.2 MG/DL (0.0-1.0); PRE OP GLUCOSE 155 MG/DL (70-104); PRE OP POTASSIUM 3.7 MMOL/L (3.4-5.1); PRE OP SODIUM 140 MMOL/L (135-145); TOTAL CARBON DIOXIDE 27.1 MMOL/L (24-32); TOTAL PROTEIN 7.9 G/DL (6.4-8.2); eGFR 51 ML/MIN
[~2025-01-10] VITALS: Ht 165.1 cm; Wt 58.7 kg
[2025-01-10] VITALS (15 sets, daily range): BP systolic 102–118; BP diastolic 60–89; PULSE 64–84; RESP 11–16; TEMP 97.7; O2SAT 94–98
[~2025-01-10 08:31] MED LIST changes: -NO HOME MEDS; -ONDA4TAB12 PO; -PANT40TA54 PO
[2025-01-10] MEDS ORDERED: LIDOcaine 1% 30ml preserv. free vial ONE (09:12)
[2025-01-10] MEDS ORDERED: BUPIVAcaine 2.5mg/ml inj 50ml vial (contains preservative) ONE (09:12)
[2025-01-10] MEDS: famotidine 20mg tablet PO ONE (09:34)
[2025-01-10] MEDS: ceFAZolin 2gm in dextrose, iso 50 ML IV ONE (09:34)
[2025-01-10] MEDS: ringers solution, lacted 1,000 ML IV SCH (09:34)
[2025-01-10] MEDS ORDERED: fentaNYL/PF 50MCG/1 ML 2ML syringe ONE (10:41)
[2025-01-10] MEDS ORDERED: midazolam 1 mg/ML 2ml injection ONE ×2 (10:42→10:45)
[2025-01-10] MEDS: BUPIVAcaine/PF 2.5 mg/ml (0.25%) 30ml vial IJ ONE (10:49)
[2025-01-10] MEDS ORDERED: propofol inj 20 ML IV ONE (10:51)
[2025-01-10] MEDS ORDERED: proCHLORperazine 10 MG/2 ml inj IV PRN (11:35)
[2025-01-10] MEDS ORDERED: morphine 2 MG/ML inj. syringe IV PRN (11:35)
[2025-01-10] MEDS ORDERED: ondansetron/PF 4mg/2ml inj IV PRN (11:35)
[2025-01-10] MEDS ORDERED: morphine 4 MG/ML inj SYRINge IV PRN (11:35)
[2025-01-10] MEDS ORDERED: ringers solution, lacted 1,000 ML IV SCH (11:35)
[2025-01-10] MEDS ORDERED: meperidine/PF 25mg/ml syringe IV PRN ×3 (11:35)
[2025-01-10] MEDS ORDERED: meperidine/PF 100mg/ml syringe IV PRN ×3 (11:36→11:37)
[2025-01-10] MEDS ORDERED: HYDROcodone/acetaminophen 5mg/325mg tablet PO PRN (11:40)
== END 2025-01-10 13:06 | disposition home or self-care (01) ==
LOC: PAS 08:31
PROVIDERS: ATTEND Surgery
DX: R22.2 Localized swelling, mass and lump, trunk (principal); D17.1 Benign lipomatous neoplasm of skin and subcutaneous tissue of trunk; G43.909 Migraine, unspecified, not intractable, without status migrainosus; F32.A Depression, unspecified; G47.30 Sleep apnea, unspecified; I10 Essential (primary) hypertension; Z90.49 Acquired absence of other specified parts of digestive tract; Z88.6 Allergy status to analgesic agent; Z79.899 Other long term (current) drug therapy; Z90.710 Acquired absence of both cervix and uterus
CPT/HCPCS: 22903; 80053; 82948; 85025; 93005; J0690; J2003; J2250; J2704; J3010; J3490; J7030; J7120; Z7506; Z7512; A4215; A4618; A7000

== ENCOUNTER 2025-08-02 09:56 | Outpatient (CLI) | payer MEDICAID ==
--- NOTE | 2025-08-02 12:15 | RADIOLOGY REPORT ---
Exam: US US NON VASCULAR Clinical History: LEFT UPPER QUADRANT PAIN Comparison: None Technique: Targeted sonographic evaluation of the soft tissues of the left upper quadrant was obtained utilizing grayscale and color Doppler imaging. Findings/Impression: There is no evidence for drainable collection. There is no evidence for solid or cystic mass in the site. No vascular abnormalities identified at this site.
== END 2025-08-02 23:59 | disposition home or self-care (01) ==
LOC: RAD 09:56
PROVIDERS: ATTEND Family Medicine
DX: R10.12 Left upper quadrant pain (principal)
CPT/HCPCS: 76882